=== PATIENT | female | born 1970 | race Caucasian/White ===

== ENCOUNTER 2023-12-13 13:07 | Outpatient (OUT) | payer BC, SELFPAY ==
--- NOTE | 2023-12-13 13:20 | CT_ITS ---
The [address] [address] Patient Name: NIDHI WOODRUFF MRN: [id number] date: 1970 Sex: F Assigned Patient Location: RAD Current Patient Location: RAD Accession/Order Number: [id number] Exam Date: 12/13/2023 14:35 Report Date: 12/13/2023 17:00 At the request of: MELISSA DODSON Procedure: CT abdomen pelvis w con EXAM: CT abdomen pelvis w con HISTORY: Right Upper Quadrant Pain R10.9 COMPARISON: None. TECHNIQUE: Axial CT images were obtained of the abdomen and pelvis without and with intravenous contrast. Multiplanar reconstructions were performed. ABDOMEN/PELVIS FINDINGS: Lower Chest: Atelectasis present in the lung bases bilaterally. Liver: Normal enhancement and contour. Biliary/Gallbladder: Unremarkable. Pancreas: Unremarkable. Spleen: Unremarkable. Adrenal Glands: Unremarkable. Kidneys: There is a tiny hypodense lesion in the upper pole and lower pole the right kidney that are too small to characterize, but most likely represent small cysts. Some contrast is present in the renal collecting system, limiting evaluation for renal calculi. No definitive renal calculi identified. Gastrointestinal/Peritoneum: No acute abnormality. Mild pancolonic diverticulosis is present. The appendix is unremarkable. No free air or free fluid. Vascular: Unremarkable. Lymph Nodes: No enlarged lymph nodes by CT size criteria. Pelvic Organs: Prior hysterectomy. Bladder: Unremarkable. Bones: No acute osseous abnormality. Soft tissues: Unremarkable. CT/CT abdomen pelvis w con IMPRESSION: 1. No acute abnormality of the abdomen and pelvis. 2. Mild pancolonic diverticulosis. 3. Prior hysterectomy. 4. Bibasilar atelectasis. Electronically authenticated by: JO SCOTT Date: 12/13/2023 17:00
== END 2023-12-13 13:08 | disposition home or self-care (01) ==
LOC: RAD 13:13
PROVIDERS: PCP Family Medicine; Visit Provider Nurse Practitioner Family
DX: R10.9 Unspecified abdominal pain (principal); K57.90 Diverticulosis of intestine, part unspecified, without perforation or abscess without bleeding
CPT/HCPCS: 74177; Q9967

== ENCOUNTER 2024-06-03 18:38 | Emergency (ER) | payer BC, SELFPAY ==
[2024-06-03 18:43] VITALS: BP 128/88; PULSE 84; TEMP 36.7; O2SAT 98; BMI 28.2
--- NOTE | 2024-06-03 19:00 | ED_ITS ---
HPI HPI - General Adult General Chief complaint: Abdominal Pain Stated complaint: Abdominal Pain, Back Pain Time Seen by Provider: 06/03/24 18:50 Source: patient Mode of arrival: walk-in History of Present Illness HPI narrative: Patient is a 53-year-old female presents to the ER with concerns of lower pelvic pain urinary urgency and frequency and concern of discomfort with prior post dermatological procedure. Patient states she looked with a mirror and noticed a bulge coming from her vagina. She has had previous hysterectomy, has 1 ovary left. Notes she has been perimenopausal for the past 2 years with hot flashes. Patient states her biopsy done over 2 weeks ago had sutures removed and appeared well-healing with tissue coming back showing post menopausal atrophy. Patient has an appointment scheduled with her human relations professor to discuss further treatment. She denies any nausea or vomiting. States she stopped drinking fluids today because she was peeing so much. She also notes some mild lower back pain. Patient appears nervous but in no distress. Onset (ago): day(s) Radiation: Reports back and abdomen (lower pelvis. ) Pain Consistency: Reports constant Relieving factors: Reports none Exacerbating factors: Reports none Related Data Home Medications ?Medication ?Instructions ?Recorded ?Confirmed alprazolam 0.25 mg tablet mg 06/03/24 betamethasone dipropionate 0.05 % applic topical 06/03/24 topical cream cyclobenzaprine 10 mg tablet mg 06/03/24 fluticasone propionate 50 intranasal 06/03/24 mcg/actuation nasal spray,suspension gabapentin 300 mg capsule mg 06/03/24 Allergies Allergy/AdvReac Type Severity Reaction Status Date / Time propofol AdvReac Severe Swelling Verified 06/03/24 18:43 of the Eye Opioid HPI Opioid Management Most Recent Opioid Data: Last Pain Scale 5 06/03/24 19:38 Last MAR Pain Assessment 06/03/24 19:38 Review of Systems ROS Constitutional Denies: fever, chills or change in weight Ears, nose, mouth, and throat Denies: throat pain or neck pain Cardiovascular Denies: chest pain or palpitations Respiratory Denies: shortness of breath or cough Gastrointestinal Reports: abdominal pain (supra-pubic); Denies: nausea or vomiting Genitourinary Reports: painful urination, urinary frequency, urinary urgency and vaginal dryness Musculoskeletal Denies: back pain or neck pain Integumentary/Breast Denies: rash, itching, skin swelling or non-healing lesion Neurological Denies: headache Psychiatric Denies: anxiety PFSH PFSH Social History Little interest or pleasure in doing things: not at all Feeling down, depressed, or hopeless: not at all Exam Narrative Exam Narrative: Nurses notes and vital signs reviewed and patient is not hypoxic. General: The patient appears well and in no apparent distress. Patient is resting comfortably on cart. Skin: Warm, dry, no pallor noted. Head: Normocephalic, atraumatic Neck: Supple, trachea mid-line, no tenderness, no lymphadenopathy Eye: Pupils are equal, round and reactive to light, EOMI Ears, Nose, Mouth, and Throat: TM are clear, normal light reflex, oral mucosa is moist, no posterior oropharynx erythema or hypertrophy, uvula is mid-line Cardiovascular: Regular Rate and Rhythm Respiratory: Patient is in no distress, no accessory muscle use, lungs are clear to auscultation, no wheezing, rales or rhonchi. Chest Wall: no tenderness Back: non-tender,mild CVA tenderness Musculoskeletal: normal ROM, no tenderness, no swelling GI: Normal bowel sounds, no tenderness to palpation, no masses appreciated. No rebound, guarding, or rigidity noted. : Pt requesting Female attending for exam: Dr. Luque. RN at bedside for certified travel counselor, External exam unremarkable without lesion, minimal bulge within vagina concerning for early bladder prolapse. Neurological: A&O x4 Psychiatric: Cooperative Constitutional Vital Signs, click to edit/add: Last Vital Signs Temp 98.1 F 06/03/24 18:43 Pulse 84 06/03/24 18:43 Resp 06/03/24 18:43 BP 128/88 06/03/24 18:43 Pulse Ox 98 06/03/24 18:43 Course Vital Signs Vital signs: Vital Signs Temperature 98.1 F 06/03/24 18:43 Pulse Rate 84 06/03/24 18:43 Respiratory Rate 20 06/03/24 18:43 Blood Pressure 128/88 06/03/24 18:43 Pulse Oximetry 98 06/03/24 18:43 Temperature 98.1 F 06/03/24 18:43 Pulse Rate 84 06/03/24 18:43 Respiratory Rate 20 06/03/24 18:43 Blood Pressure 128/88 06/03/24 18:43 Pulse Oximetry 98 06/03/24 18:43 Medical Decision Making MDM Narrative Medical decision making narrative: Labs reviewed, patient given Toradol 30 mg IV. Patient nonsurgical, urinalysis without evidence of infection. We discussed her symptoms possibly related to atrophy of her vaginal tissues and prolapsing bladder. Easily reduced and appears mild patient reports having previous discussion for bladder sling with her human relations professor and has an appointment coming up on the of this month. She will call him sooner to see if she can be evaluated to start more symptomatic treatment sooner with postmenopausal symptoms. Patient will return to the ER if symptoms worsen or new symptoms develop for reevaluation. Patient agreeable to hold on antibiotics at this time. States she has been treated in this manner in the past by urgent cares but they have never found a UTI infection on cultures. The patient is to followup with primary care physician in next 2-3 days or to return to the emergency department should any of the signs or symptoms worsen or new symptoms develop. Patient had questions answered. The patient agrees with the following Diagnosis and Treatment plan and the patient will be discharged home. Lab Data Lab results reviewed: Yes I reviewed the patient's lab results Labs: Lab Results 06/03/24 06/03/24 Range/Units 19:22 19:41 WBC 11.0 (4.0-11.0) 10^3/uL RBC 5.03 (4.20-5.40) 10^6/uL Hgb 15.8 (12.0-16.0) g/dL Hct 46.5 (36.0-48.0) % MCV 92.4 (81.0-99.0) fL MCH 31.4 (26.7-34.0) pg MCHC 34.0 (29.9-35.2) g/dL RDW 12.6 (11.0-15.0) % Plt Count 241 (150-450) 10^3/uL MPV 11.2 (9.5-13.5) fL Neut % (Auto) 51.8 (43.0-75.0) % Lymph % (Auto) 37.5 (20.5-60.0) % Morrill % (Auto) 7.1 (1.7-12.0) % Eos % (Auto) 2.7 (0.9-7.0) % Baso % (Auto) 0.8 (0.2-2.0) % Neut # (Auto) 5.7 (1.4-6.5) 10^3/uL Lymph # (Auto) 4.1 H (1.2-3.8) 10^3/uL Morrill # (Auto) 0.8 (0.3-0.8) 10^3/uL Eos # (Auto) 0.3 (0.0-0.7) 10^3/uL Baso # (Auto) 0.1 (0.0-0.1) 10^3/uL Abs Immat Gran (auto) 0.01 (0.00-0.03) 10^3/uL Imm/Tot Granulo (auto) 0.1 (0.0-0.5) % Sodium 135 L (136-145) mmol/L Potassium 3.9 (3.5-5.1) mmol/L Chloride 101 (98-107) mmol/L Carbon Dioxide 29.5 (21.0-32.0) mmol/L Anion Gap 8.4 BUN 16.0 (7.0-18.0) mg/dL Creatinine 0.83 (0.55-1.02) mg/dL Est GFR ( Amer) >60 (>=60) Est GFR (Non-Af Amer) >60 (>=60) BUN/Creatinine Ratio 19.3 Glucose 113 H (74-106) mg/dL Calcium 9.2 (8.5-10.1) mg/dL Total Bilirubin 0.3 (0.2-1.0) mg/dL AST 14 L (15-37) U/L ALT 27 (14-59) U/L Alkaline Phosphatase 126 H (46-116) U/L Total Protein 7.5 (6.4-8.2) g/dL Albumin 3.8 (3.4-5.0) g/dL Globulin 3.7 g/dL Albumin/Globulin Ratio 1.0 Urine Color Lt. yellow (YELLOW) Urine Clarity Clear (CLEAR) Urine pH 6.0 (5.0-9.0) Ur Specific [place] 1.010 (1.005-1.025) Urine Protein Negative (NEG/TRACE) mg/dL Urine Glucose (UA) Negative (NEGATIVE) mg/dL Urine Ketones Negative (NEGATIVE) mg/dL Urine Occult Blood Negative (NEGATIVE) Urine Nitrite Negative (NEGATIVE) Urine Bilirubin Negative (NEGATIVE) Urine Urobilinogen 0.2 (0.2-1.0) EU/dL Ur Leukocyte Esterase Small A (NEGATIVE) Urine RBC 0-2 (0-2) #/HPF Urine WBC 0-2 A (NONE SEEN) #/HPF Ur Squamous Epith Cells Few A (NONE/RARE) #/LPF Urine Crystals Seen A (None Seen) #/HPF Amorphous Sediment Rare Urine Bacteria None seen (NONE SEEN) #/HPF Urine Casts None seen (NONE SEEN) #/LPF Urine Mucus None seen (NONE SEEN) Ur Culture Indicated? No Discharge Plan Discharge Chief Complaint: Abdominal Pain Clinical Impression: Female bladder prolapse, Dysuria Patient Disposition: Home, Self-Care Time of Disposition Decision: 20:21 Condition: Good Prescriptions / Home Meds: No Action cyclobenzaprine 10 mg tablet alprazolam 0.25 mg tablet betamethasone dipropionate 0.05 % cream TOPICAL gabapentin 300 mg capsule fluticasone propionate 50 mcg/actuation spray,suspension INTRANASAL Print Language: Icelandic Instructions: Kegel Exercises for Women (DC), Bladder Sling for Women (DC) Additional Instructions: Return to ER If symptoms worsen or new symptoms develop before seeing Dr. Glez Recommend calling Dr. Glez on Tuesday to discussed sooner appt to start treatment plan. Referrals: Tevin Easley MD [Primary Care Provider] - 1 week AVINASH GLEZ [Physician] - As soon as possible
[2024-06-03 19:27] LABS: Basophils Absolute Auto 0.1 10^3/uL (0.0-0.1); Basophils Percent Auto 0.8 % (0.2-2.0); Eosinophils Absolute Auto 0.3 10^3/uL (0.0-0.7); Eosinophils Percent Auto 2.7 % (0.9-7.0); Hematocrit 46.5 % (36.0-48.0); Hemoglobin 15.8 g/dL (12.0-16.0); Immature Granulocytes Abs Auto 0.01 10^3/uL (0.00-0.03); Immature Granulocytes Pct Auto 0.1 % (0.0-0.5); Lymphocytes Absolute Auto 4.1 10^3/uL (1.2-3.8); Lymphocytes Percent Auto 37.5 % (20.5-60.0); Mean Corpuscular Hemoglobin 31.4 pg (26.7-34.0); Mean Corpuscular Volume 92.4 fL (81.0-99.0); Mean Platelet Volume 11.2 fL (9.5-13.5); Monocytes Absolute Auto 0.8 10^3/uL (0.3-0.8); Monocytes Percent Auto 7.1 % (1.7-12.0); Neutrophils Absolute Auto 5.7 10^3/uL (1.4-6.5); Neutrophils Percent Auto 51.8 % (43.0-75.0); Platelet Count 241 10^3/uL (150-450); Red Blood Count 5.03 10^6/uL (4.20-5.40); Red Cell Distribution Width 12.6 % (11.0-15.0)
[2024-06-03] MEDS: KETOROLAC TROMETHAMINE 30 MG/ML VIAL IVP (19:38)
[2024-06-03 19:46] LABS: Alanine Aminotransferase 27 U/L (14-59); Albumin Level 3.8 g/dL (3.4-5.0); Alkaline Phosphatase 126 U/L (46-116); Anion Gap 8.4; Aspartate Amino Transferase 14 U/L (15-37); BUN Creatinine Ratio 19.3; Bilirubin Total 0.3 mg/dL (0.2-1.0); Calcium 9.2 mg/dL (8.5-10.1); Carbon Dioxide 29.5 mmol/L (21.0-32.0); Chloride 101 mmol/L (98-107); Estimated GFR (African America >60 (>=60); Estimated GFR (Non-African Ame >60 (>=60); Globulin 3.7 g/dL; Glucose 113 mg/dL (74-106); Potassium 3.9 mmol/L (3.5-5.1); Sodium 135 mmol/L (136-145); Total Protein 7.5 g/dL (6.4-8.2)
[2024-06-03 19:53] LABS: Bilirubin Urine NEGATIVE (NEGATIVE); Blood Urine NEGATIVE (NEGATIVE); Clarity Urine CLEAR (CLEAR); Color Urine LT. YELLOW (YELLOW); Glucose Urine UA NEGATIVE (NEGATIVE); Ketones Urine NEGATIVE (NEGATIVE); Leukocyte Esterase Urine SMALL (NEGATIVE); Nitrite Urine NEGATIVE (NEGATIVE); Protein Urine NEGATIVE (NEG/TRACE); Urobilinogen Urine 0.2 EU/dL (0.2-1.0)
[2024-06-03 20:01] LABS: Urine Microscopic Indicated YES
[2024-06-03 20:07] LABS: Amorphous Sediment Urine RARE; Bacteria Urine NONE SEEN #/HPF (NONE SEEN); Cast Seen? NONE SEEN #/LPF (NONE SEEN); Crystals Seen? Seen #/HPF (None Seen); Mucus Urine NONE SEEN (NONE SEEN); RBC Urine 0-2 #/HPF (0-2); Squamous Epithelial Cell Urine FEW #/LPF (NONE/RARE); Urine Culture Indicated NO; WBC Urine 0-2 #/HPF (NONE SEEN)
== END 2024-06-03 20:30 | disposition home or self-care (01) ==
PROVIDERS: Personal Emergency Response Attendant; Emergency Provider Emergency Medicine; PCP Family Medicine
DX: N81.10 Cystocele, unspecified (principal); R30.0 Dysuria; Z90.710 Acquired absence of both cervix and uterus; Z90.721 Acquired absence of ovaries, unilateral
CPT/HCPCS: 36415; 80053; 81001; 85025; 96374; 99285; J1885

== ENCOUNTER 2025-03-21 12:59 | Outpatient (OUT) | payer MEDICAID, SELFPAY ==
--- NOTE | 2025-03-21 13:57 | P.CN_ITS ---
Consult Note: HPI Data of Consult Patient: known to practice within the last 3 years Requesting Physician: Alcira Bob NP Primary Care Provider: Tevin Easley MD Consult Narrative Reason for consult: neck pain Narrative: Jany Ordaz a pleasant 54 year old female presents for evaluation of chronic neck pain. Pt was referred by Dr Hodge at [facility] for evaluation and consideration of left C3-4 C7-T1 MBBs. 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 Pt reports worsening pain over the last year with numbness tingling and weakness of LUE. Pt was evaluated by Dr Austin office who trialed cervical MBB at unkown level without improvement, pt noted increased pain since. In January of 2025 pt developed significant hyperalgesia and sensitivity and has not had additional injections since. She is not interested in oral steroids due to tachycardia. She is utilizing ibuprofen prn, flexeril prn, and xanax prn. pt reports headaches 3-4 times a week since january of 2025. no prior hx of migraines/headaches. cc:: CC: Alcira Bob NP Review of Systems ROS Musculoskeletal Reports: neck pain PFSH PFSH Social History Little interest or pleasure in doing things: not at all Feeling down, depressed, or hopeless: not at all Meds Home Medications and Allergies Home Medications ?Medication ?Instructions ?Recorded ?Confirmed ?Type alprazolam 0.25 mg tablet mg 06/03/24 History betamethasone dipropionate 0.05 % applic topical 06/03 History topical cream cyclobenzaprine 10 mg tablet mg 06/03/24 History fluticasone propionate 50 intranasal 06/03/24 History mcg/actuation nasal spray,suspension gabapentin 300 mg capsule mg 06/03/24 History Allergies Allergy/AdvReac Type Severity Reaction Status Date / Time propofol AdvReac Severe Swelling Verified 06/03/24 18:43 of the Eye Exam Constitutional Documenting provider has reviewed patient's vital signs: yes Common normals: no apparent distress, oriented x3, healthy appearing, alert and well nourished General appearance: cooperative HENFL Common normals: normocephalic, hearing grossly normal bilaterally and moist oral mucous membranes Head and scalp: normocephalic Eye Common normals: PERRL Pupil: PERRL Neck & C-Spine Common normals: full ROM General: normal visual inspection Cervical spine: cervical ROM abnormal, pain with cervical ROM and cervical spine tenderness Other: significant hyperalgesia, pt was unable to tolerate palpation of her left neck and trapezius due to significant pain and sensitivity. pt reports severe pain to left splenius capitus and pain following left greater occipital nerve positive spurlings following left C6,7 strength 4/5 in LUE and 5/5 in RUE Chest Common normals: inspection of chest normal Respiratory Common normals: normal respiratory effort, no retractions and no use of accessory muscles Neuro Common normals: oriented x3 Sensorium/orientation: alert Psych Common normals: mental status grossly normal, thought process normal, cooperative, affect normal, speech normal and activity/motor behavior normal Speech: normal speech Thought process: normal thought process Results Additional Findings Additional findings: If on a controlled substance or opioids, I have checked an [place] report on this patient and there are no aberrancies noted in the prescribing history.??If on a controlled substance or opioid a drug screen was completed and reviewed within the last year, and if there has not been a drug screen completed we ordered one today to monitor higher risk, state monitored pain medication use. As part of providing excellent, safe, comprehensive care, the following was completed at our patient's visit: 1. A medication reconciliation and review to ensure accurate knowledge of current/active medications, including asking our patients to inform us about any [id number] medications or herbal remedies/nutritional supplements/alternative remedies. 2. A review to specifically ensure our patients have had annual screening for screening for depression, screening for tobacco use, and screening for unhealthy alcohol use. For concerning screenings had a discussion with the patient, provided patient education, and recommended follow-up with primary care provider when appropriate. If patient noted with a risk of falling, they received educa tion on strength, gait, and balance training to prevent future risk of falling. Portions of this note may have been carried over from the previous visit and updated as appropriate. Please note this office utilizes paper charting in addition to the electronic medical record. A list of current medications, vitals, and PMH is available there as the clinical staff outside of myself do not have access to [employer] charting during the clinic day operations. As part of providing quality comprehensive care the current medications, vitals, and PMH were reviewed in the paper chart. Assessment and Plan Assessment and Plan (1) Hyperalgesia: (2) Occipital neuralgia of left side: (3) Cervical spondylosis: (4) Failed neck syndrome: (5) Cervical radiculopathy: Plan 54 year old female with chronic neck pain post fusion with complication of occipital neuralgia. imaging reviewed, physical exam completed as noted above. unfortunately at this time due to patients significant hyperalgesia we cannot offer left C3-4 C7-T1 MBB. 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 Pt should consider SCS as an alternative. At this time i will advise pt to dc flexeril and start tizanidine 4mg tabs 1/2-2 tabs TID PRN headaches/pain/spasms. continue prn nsaids and tylenol. on xanax so non narcotic care plan with our office. pt declining MDP due to tachycardia with steroids. i will reach out to referring provider and update them on todays visit, recommend she f/u with their office for further evaluation. f/u 6 weeks to evaluate medication regimen, if hyperalgesia improves we can consider interventional therapy
== END 2025-03-21 13:00 | disposition home or self-care (01) ==
PROVIDERS: PCP Family Medicine; Visit Provider Nurse Practitioner
DX: R20.8 Other disturbances of skin sensation (principal); M54.81 Occipital neuralgia; M47.812 Spondylosis without myelopathy or radiculopathy, cervical region; M96.1 Postlaminectomy syndrome, not elsewhere classified; M54.12 Radiculopathy, cervical region
CPT/HCPCS: G0463